=== PATIENT | male | born 1975 | race Caucasian/White ===

== ENCOUNTER 2020-04-09 17:53 | Emergency (ER) | payer OTHER ==
[~2020-04-09] VITALS: Ht 172 cm; Wt 130.0 kg
[2020-04-09 18:04] VITALS: BP 145/83
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
[2020-04-09] MEDS ORDERED: DICL75TA2 PO (18:46)
== END 2020-04-09 18:47 | disposition home or self-care (01) ==
LOC: ER FS 17:55
DX: S39.012A Strain of muscle, fascia and tendon of lower back, initial encounter (principal); V89.2XXA Person injured in unspecified motor-vehicle accident, traffic, initial encounter
CPT/HCPCS: 72072; 72100